=== PATIENT | female | born 1950 | race Caucasian/White ===

== ENCOUNTER 2022-12-18 20:33 | Outpatient (CLI) | payer OTHER, SELFPAY | END 2022-12-18 20:34 | disposition home or self-care (01) | LOC: SLEEP 20:34 | PROVIDERS: PCP Family Medicine; Visit Provider Internal Medicine | DX: G47.33 Obstructive sleep apnea (adult) (pediatric) (principal) | CPT/HCPCS: 95811 ==

== ENCOUNTER 2023-12-06 10:30 | Outpatient (RCR) | payer OTHER, SELFPAY | END 2024-03-26 10:02 | disposition home or self-care (01) | PROVIDERS: PCP Family Medicine; Visit Provider Family Medicine | DX: S82.55XD Nondisplaced fracture of medial malleolus of left tibia, subsequent encounter for closed fracture with routine healing (principal); S93.402D Sprain of unspecified ligament of left ankle, subsequent encounter; Z51.89 Encounter for other specified aftercare | CPT/HCPCS: 97110; 97140; 97162; 97530 ==

== ENCOUNTER 2024-11-11 13:45 | Outpatient (RCR) | payer OTHER, SELFPAY | END 2024-12-27 17:04 | disposition home or self-care (01) | PROVIDERS: PCP Family Medicine; Visit Provider Nurse Practitioner Family | DX: M25.552 Pain in left hip (principal); Z51.89 Encounter for other specified aftercare | CPT/HCPCS: 97110; 97112; 97161 ==

== ENCOUNTER 2025-01-02 14:14 | Observation (INO) | payer OTHER, SELFPAY ==
[2025-01-02] VITALS (12 sets, daily range): BP systolic 132–164; BP diastolic 70–131; PULSE 60–77; RESP 16–18; TEMP 36.1–36.8; O2SAT 92–100; BMI 30.2; BMI 30.7
--- OUTSIDE RECORDS SUMMARY | 2025-01-02 14:23 | XMS_ITS | Clinical Summary ---
Author Organization [facility] Address [address] [place] [id number] Care Team Providers Care Jewelry Polisher Name Role Phone No Echavarria MD Primary Care Provide r Allergies Active Allergy Reactions Criticality Noted Date Comments Amoxicillin Rash 05/13/2020 Trazodone Sedation 12/15/2022 Medications acetaminophen (TYLENOL) 500 mg capsule Take 500 mg by mouth every 6 hours if needed. Max acetaminophen dose: 4000mg in 24 hrs. Active albuterol HFA (PRO-AIR; VENTOLIN; PROVENTIL) 90 mcg/actuation inhalerIndications :SOB (shortness of breath) Inhale 1-2 Puffs by mouth every 4 hours if needed for Shortness Of Breath or Wheezing. 1 Each 3 02/22/20 24 Active medication order composerIndication s:ABDI (obstructive sleep apnea) 12/18/2022 AHI- 13; diagnosis obstructive sleep apnea MRD #1 1 unit 04/10/20 24 Active mirtazapine (REMERON) 15 mg tabletIndications: Insomnia, idiopathic Take 1 Tablet (15 mg) by mouth at bedtime. 60 Tablet 5 06/18/19 25 Active triamcinolone 0.1 % cream 09/26/19 24 Active omeprazole 20 mg Delayed-Release capsuleIndications :Chronic GERD Take 1 Capsule (20 mg) by mouth once daily if needed for GI Upset. 100 Capsule 3 08/16/19 25 Active metoprolol succinate 50 mg sustained-release tabletIndications: Primary hypertension Take 1 Tablet (50 mg) by mouth once daily. 100 Tablet 3 08/16/19 25 Active rosuvastatin 10 mg tabletIndications: Hyperlipidemia, unspecified hyperlipidemia type Take 1 Tablet (10 mg) by mouth at bedtime. 100 Tablet 3 08/16/19 25 Active amLODIPine 2.5 mg tabletIndications: HTN (hypertension) Take 1 Tablet (2.5 mg) by mouth once daily. 100 Tablet 3 08/16/19 25 Active gabapentin 100 mg capsuleIndications :Chronic pain of left ankle TAKE 2 CAPSULES ( 200mg) BY MOUTH AT NIGHT 200 Capsule 3 08/16/19 25 Active Active Problems Problem Noted Date Diagnosed Date Gastroesophageal reflux disease without esophagi tis 12/20/2022 Hyperlipidemia, unspecified 07/30/2021 HTN (hypertension) 07/30/2021 Osteoporosis 07/30/2021 Vasovagal syncope 07/30/2021 Encounters Date Type Department Care Team Description 11/08/2024 1:00 PM CDT Ancillary Procedure [facility] [address] [place] [address] 11/08/2024 Travel 11/06/2024 Travel 10/18/2024 Telephone [facility] [address] [place] [address] Phoebe Parisi NP Form (PHYSICIAN ORDER) 10/16/2024 10:25 AM CDT Ancillary Procedure [facility] [address] [place] [address] 10/16/2024 10:00 AM CDT Office Visit [facility] [address] [place] [address] Phoebe Parisi NP Hip Pain/problem (Left x 1 week) 10/16/2024 Travel 10/16/2024 Nurse Triage [facility] [address] [place] [address] No Echavarria MD Hip Pain/problem from Last 3 Months Immunizations Immunization Administration Dates Next Due COVID-19 VACCINE (MODERNA 25MCG/0.25ML) 6MO-11YO PFS 02/01/2024 COVID-19 VACCINE SPIKEVAX (M ODERNA 50MCG/0.5ML) 12YO+ PFS 03/02/2023 COVID-19 vaccine (Moderna 100mcg/0.5mL) PF, MDV 11/11/2021,02/23/2021,02/03/2021,2020,06/26/2020 COVID-19 vaccine (Moderna 50mcg/0.5mL) 12YO+ BIVALENT PF, MDV 12/23/2022,02/17/2022 Hepatitis A (Adult) 12/17/2002 Influenza, High-dose Inactivated 01/30/2018 Influenza, High-dose Quadriv alent Inactivated 02/08/2022,02/03/2021 Influenza, IIV3 (Age 6-35 mos) 01/10/2020 Influenza, IIV3 (Age >=3 years) 04/27/20 06,04/14/2005,05/04/2004,2002 Influenza, Inactivated AIIV4 (Age 65+ Years) Preserv Free 02/15/2023 Influenza, Inactivated IIV3 (Age 65+ Years) Preserv Free 02/01/2024,01/15/2019 Pneumococcal Conj 20-valent (Prevnar 20) 08/18/2022 Tdap 09/18/2023,09/20/2005 Typhoid (injectable) 09/20/2005,11/26/2002 Zoster (Shingrix-RZV, recombinant) 01/15/2019, Family History Medical History Relation Name Comments Heart attack Brother Heart attack Father Unknown Mother Stroke Sister Cancer-breast No Family History Cancer-ovarian No Family History Relation Name Status Comments Brother (Age 61) Father (Age 58) Mother Sister (Age 48) Social History Tobacco Use Types Packs/Day Years Used Date Smoking Tobacco: Never Passive Smoke Exposure: Never Smokeless Tobacco: Never Tobacco Cessation:Counseling Given: Not Answered Alcohol Use Standard Drinks/Week Comments Yes 0 (1 standard drink = 0.6 oz pur e alcohol) OCASSIONALLY PHQ-2 Answer Date Recorded PHQ-2 TOTAL SCORE 2 08/15/2024 Social Connections Answer Date Recorded Do you often feel lonely or isolated from those around you? 0 02/22/2024 Financial Resource Strain Answer Date R ecorded Difficulty of Paying Living Expenses 3 02/22/2024 Difficulty of Paying Living Expenses Not on file 02/22/2024 Food Insecurity Answer Date Recorded Do you worry your food will run out before you are able to buy more? 1 02/22/2024 Transportation Needs Answer Date Record ed Does lack of transportation keep you from medica l appointments? 1 02/22/2024 Does lack of transportation keep you from work, meetings or getting things that you need? 1 02/22/2024 Housing Stability Answer Date Recorded What is your housing situation today? 1 02/22/2024 Utilities Answer Date Recorded Do you have trouble paying f or utilities (for example, heat, electricity, water, phone)? 1 02/22/2024 Comments No Sex and Gender Information Value Date Recorded Sex Assigned at Not on file Legal Sex Female 8:35 PM CDT Gender Identity Not on file Sexual Orientation Not on file Obstetrics History Last Filed Vital Signs Vital Sign Reading Time Taken Comments Blood Pressure 132/70 10/16/2024 10:18 AM CDT Pulse 60 10/16/2024 10:05 AM CDT Temperature 36.2 C (97.2 F) 09/24/2024 10:08 AM CDT Respiratory Rate 16 12/20/2022 11:30 AM CDT Oxygen Saturation 96% 10/16/2024 10:05 AM CDT Inhaled Oxygen Concentration - - Weight 75.3 kg (166 lb) 10/16/2024 10:05 AM CDT Height 158.8 cm (5' 2.5) 08/15/2024 1:16 PM CDT Body Mass Index 29.88 08/15/2024 1:16 PM CDT Plan of Treatment Upcoming Encounters Date Type Department Care Team (Late st Contact Info) Description 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 Office Visit [facility] [address] [place] [address] Augusto Dey MD [address] [place] [address] Health Maintenance Due Date Last Done Comments Influenza Vaccine (#1) 2024 4, 02/15/2023, 01/10/2020, Additional history exists COVID-19 vaccine series ( season) 2025 08/23/2024, 02/01/2024, 02/01/2024, Additional history exists BMI (ht and wt on same day) for age 18+ 08/15/2025 08/15/2024, 04/10/2024, 02/06/2024, Additional history exists Medicare Wellness for age 65+ 08/16/2025 08/15/2024, 08/11/2023, 08/04/2022, Additional history exists Depression screening for age 12+ 08/19/2025 08/19/2024, 08/19/2024, 08/16/2024, Additional history exists Mammogram for age 45-75 11/08/2025 11/09/19, 10/23/2023, 10/12/2022, Additional history exists RSV vaccine for adults or (1 - 1-dose 75+ series) 2026 Lipids for age 45-75 08/19/2029 08/19/2024, 08/11/2023, 08/09/2022, Additional history exists Colonoscopy through age 75 10/21/2031 10/20/2021, Tetanus booster 09/17/2033 09/18/2023, 09/20/2005 Zoster (shingles) series for age 50+ Completed 01/15/2019, 11/14/2018 Hepatitis C screening for age 18-79 Completed 07/30/2021 Pneumococcal series for age 50+ Completed 08/18/2022 DEXA/DXA scan for age 65+ Completed 08/15/2024, 03/2023 Hepatitis B series for 19+ Aged Out N o longer eligible based on patient's age to complete this topic Goals Goal Patient Goal Type Associated Problems Recent Progress Patient-Stated? 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 Procedures Procedure Name Priority Date/Time Associated Diagnosis Comments XR MAMMO LOU BILAT SCREEN Routine 11/08/2024 1:17 PM CDT Visit for screening mammogram XR HIP 1 VIEW W PELVIS LEFT Routine 10/16/2024 10:33 AM CDT Acute hip pain, left LIPID PANEL W REFLEX MEASURED LDL Routine 08/19/2024 11:54 AM CDT Hyperlipidemia, unspecified hyperlipidemia type XR DXA BONE DENSITY 2 SITES AXIAL Routine 08/15/2024 2:50 PM CDT Osteoporosis, unspecified osteoporosis type, unspecified pathological fracture presence COLONOSCOPY 10/20/2021 7:39 AM CDT ANTI HCV Routine 07/30/2021 11:31 AM CDT Encounter for hepatitis C screening test for low risk patient from Last 3 Months or Most Recently Relevant to Health Maintenance Results * XR MAMMO LOU BILAT SCREEN (11/08/2024 1:17 PM CDT) Anatomical Region Laterality Modality BREASTS, Breast Left, Breast Right Bilateral Mammography Impressions 11/08/2024 3:23 PM CDT There is no radiographic evidence for malignancy. Recommend annual mammograms. MAMMOGRAM ASSESSMENT: ACR 1 Negative PATIENTS: You will also receive a letter with your examination results in an easy to read format. If you have questions about your results, please contact your referring provider. Narrative 11/08/2024 3:23 PM CDT For Patients: As a result of the Cures Act, medical imaging exams and procedure reports are released immediately into your electronic medical record. You may view this report before your referring provider. If you have questions, please contact your health care provider. XR MAMMO LOU BILAT SCREEN [[id number]] CLINICAL HISTORY: This is an asymptomatic 74 y.o. patient. INDICATION FOR EXAM: Mammogram Screening. TECHNIQUE: CC and MLO views were obtained. This study was evaluated with the assistance of Computer-Aided Detection. Breast Tomosynthesis was used in interpretation. COMPARISON FILM: Yes 10/23/23 [facility] 10/12/22 [facility] FINDINGS: There are scattered areas of fibroglandular density. There are no dominant masses, suspicious micro calcifications or areas of architectural distortion. us No Echavarria MD MAMMO Final Result * XR HIP 1 VIEW W PELVIS LEFT (10/16/2024 10:33 AM CDT) Anatomical Region Laterality Modality HIPS, HIPL, Pelvis Computed Radi ography 10/16/2024 3:13 PM CDT Narrative 10/16/2024 3:13 PM CDT For Patients: As a result of the Cures Act, medical imaging exams and procedure reports are released immediately into your electronic medical record. You may view this report before your referring provider. If you have questions, please contact your health care provider. Indication: Hip pain Technique: Pelvis and left hip 2 views Comparison: None Findings: Spurring at the right lateral acetabulum. No femoral neck fracture. Spurring at the iliac crests. Degenerative changes lower lumbar spine. Impression: No fracture. Dictated by Iain Infante MD @ 10/16/2024 3:13:37 PM (Electronically Signed) Procedure Note Iain Infante MD - 10/16/2024 For Patients: As a result of the Cures Act, medical imagingexams and procedure reports are released immediately into your electronicmedical record. You may view this report before your referring provider.If you have questions, please contact your health care provider. Indication: Hip pain Technique: Pelvis and left hip 2 views Comparison: None Findings: Spurring at the right lateral acetabulum. No femoral neck fracture.Spurring at the iliac crests. Degenerative changes lower lumbar spine. Impression: No fracture. Dictated by Iain Infante MD @ 10/16/2024 3:13:37 PM (Electronically Signed) us Phoebe Parisi [facility] Final Res ult * (ABNORMAL) LIPID PANEL W REFLEX MEASURED LDL (08/19/2024 11:54 AM CDT) CHOLESTEROL, TOTAL 130 <200 mg/dL [facility] HDL CHOLESTEROL 46(L) > OR = 50 mg/dL [facility] TRIGLYCERIDES 127 <150 mg/dL [facility] LDL-CHOLESTEROL 63 mg/dL (calc) [facility] Comment: Reference range: <100 Desirable range <100 mg/dL for primary prevention; <70 mg/dL for patients with CHD or diabetic patients with > or = 2 CHD risk factors. LDL-C is now calculated using the Agapito calculation, which is a validated novel method providing better accuracy than the Friedewald equation in the estimation of LDL-C. Abimael FRANCO et al. SWATI. 2013;310(19): 7405-3943 (http://education.LookTracker/faq/NDP460) CHOL/HDLC RATIO 2.8 <5.0 (calc) [facility] NON HDL CHOLESTEROL 84 <130 mg/dL (calc) [facility] Comment: For patients with diabetes plus 1 major ASCVD risk factor, treating to a non-HDL-C goal of <100 mg/dL (LDL-C of <70 mg/dL) is considered a therapeutic option. Blood BLOOD SPECIMEN / Unknown 08/19/2024 11:54 AM CDT 08/19/2024 11:54 AM CDT No Echavarria MD CHEMISTRY Final Result [facility] [address] [place] [address], [facility] [address] * (ABNORMAL) XR DXA BONE DENSITY 2 SITES AXIAL (08/15/2024 2:50 PM CDT) Anatomical Region Laterality Modality Spine, HIPS, HIPL, HIPR Other Impressions 08/21/2024 3:27 PM CDT Osteopenia. Due to the stability of the bone density, continue present medication if indicated. RECOMMENDATIONS: The National Osteoporosis Foundation recommends pharmacologic treatment for patients with T-scores of -2.5 or less, patients with prior history of fragility fractures, or patients with 10-year probability of greater than 3% at hips or greater than 20% of suffering major osteoporotic fractures. Recommend continued optimization of calcium and vitamin D intake through dietary means and/or supplementation and regular exercise. Continue current Zoledronic Acid (Reclast, Zometa) medication treatment. Recheck bone density in 2 years. Sis Becker PA-C [facility] 08/21/2024 Narrative 08/21/2024 3:27 PM CDT For Patients: Results are automatically released to your [facility] ([employer]) account once available, in compliance with federal regulations. This means that you may see your results before your provider has had a chance to review them. Please allow 2-3 business days for your provider to comment on the results. XR DXA Bone Mineral Density (BMD) EXAM LOCATION: [facility] [address] [facility] [address] PATIENT NAME: Tg Azul DATE OF : 1950 EXAM DATE: 08/15/2024 REQUESTING PROVIDER: No Echavarria MD GENDER AT : female HEIGHT: 5' 2.5 (08/15/2024) WEIGHT: 165 lb (08/15/2024) MENOPAUSAL STATUS: Postmenopausal RACE/ETHNICITY: White RISK FACTORS: History of Fragility Fracture (at a major site) and White Race CURRENT MEDICATION FOR BONE LOSS: Zoledronic Acid (Reclast, Zometa) INDICATION: Follow-up of existing osteoporosis COMPARISON DATE(S): 2022 DXA scans are compared to prior studies for a patient only when the two (or more) studies were performed on the same scanner. It is not possible to compare data generated on one scanner to data from another because there are not standards in DXA equipment. This applies even if the two scanners are made by the same knife setter assembler. PROCEDURE: Dual-energy x-ray absorptiometry performed with routine technique. Reporting is completed in the form of a T-score. The T-score represents the standard deviation from peak bone mass based on young healthy adult. A Z-score is used for diagnosis in premenopausal women, and for men under the age of 50. FINDINGS: RESULT LUMBAR SPINE L1 - L4 BMD: 1.034 g/cm2 T-Score: - 1.3 Z-Score: - 0.1 Change from prior in 2022: Decrease 2.1%. RESULTS FEMUR Left femoral neck BMD: 0.711 g/cm2 T-Score: - 2.3 Z-Score: - 0.7 Change from prior in 2022: Increase 2.0%. Right femoral neck BMD: 0.723 g/cm2 T-Score: - 2.3 Z-Score: - 0.6 Change from prior in 2022: Decrease 0.3%. Right hip BMD: 0.822 g/cm2 T-Score: - 1.5 Z-Score: - 0.1 Change from prior in 2022: Increase 0.6%. WHO criteria: Normal: T-score at or above -1 SD Osteopenia: T-score between -1.1 and -2.4 SD Osteoporosis: T-score at or below -2.5 SD us No Echavarria MD DEXA Final Result * COLONOSCOPY (10/20/2021 7:39 AM CDT) 10/20/2021 7:39 AM CDT Narrative Transcriptions Abimael Shi MD - 10/20/2021 8:43 AM CDT Patient Name: Tg Azul Procedure Date: 10/20/2021 Gender: Female Date of : 1950 Admit Type: Outpatient Procedure: Colonoscopy Proceduralist: Abimael Shi MD Indications/Pre-Op Diagnosis: Screening for colorectal malignant neoplasm, Last colonoscopy: May 2011 Medications: Fentanyl 200 micrograms IV, Midazolam 2 mgIV, The level of sedation administered wasmoderate Procedure Description: The patient had risks, benefits and alternatives explained to andgave informed consent. The patient had a stable cardiopulmonary status and judged an adequate candidate for conscious sedation. The Colonoscope was passed through the anus and advanced to thececum, identified by appendiceal orifice and ileocecal valve. Thecolonoscopy was performed without difficulty. The patient tolerated the procedure well. The quality of the bowel preparation was good. The ileocecal valve, appendiceal orifice, and rectum were photographed. Complications: No immediate complications. Estimated Blood Loss & Specimen: Estimated blood loss: none. Specimen collected - None Findings: The perianal and digital rectal examinations were normal. The entire examined colon appeared normal on direct and retroflexion views. Impressions/Post-Op Diagnosis: - The entire examined colon is normal on direct and retroflexionviews. - No specimens collected. Recommendation: - Patient has a contact number available for emergencies. The signsand symptoms of potential delayed complications were discussed with the patient. Return to normal activities tomorrow. Written discharge instructions were provided to the patient. - Resume previous diet. - Continue present medications. - No repeat colonoscopy due to current age (66 years or older) andthe absence of colonic polyps. Moderate Sedation: Moderate (conscious) sedation was administered by the endoscopy nurse and supervised by the endoscopist. The following parameters were monitored: oxygen saturation, heart rate, respiratory rate, blood pressure, adequacy of pulmonary ventilation and reponse to care. Please refer to the patient's medical record flowsheets and nursing notes for moderate sedation details. Total physician intraservice time was 30 minutes. Abimael Shi MD 10/20/2021 8:43:09 AM This report has been signed electronically. Note Initiated On: 10/20/2021 7:39 AM Procedure Code(s): --- Professional --- 24120, Colonoscopy, flexible; diagnostic, including collection of specimen(s) bybrushing or washing, when performed (separateprocedure) Diagnosis Code(s): --- Professional --- Z12.11, Encounter for screening formalignant neoplasm of colon CPT copyright 2020 [employer]. All rights reserved. The codes documented in this report are preliminary and upon crane operator reviewmay be revised to meet current compliance requirements. Scope In: 8:09:27 AM Scope Withdrawal Time 0 hours 9 minutes 53 seconds Scope Out: 8:35:23 AM us Abimael Shi MD PROCEDURE ORD Final Res ult * ANTI HCV (07/30/2021 11:31 AM CDT) HEPATITIS C ANTIBODY Non-React gustabo Non-React gustabo 07/30/2021 11:27 PM CDT [facility] Comment:Antibodies to HCV no t detected; does not exclude the possibility of exposure to HCV. Blood BLOOD SPECIMEN / Unknown Venipuncture / Unknown 07/30/2021 11:31 AM CDT 07/30/2021 11:31 AM CDT us No Echavarria MD SEND OUTS Final Result [facility] [address] [place] [address], [place] from Last 3 Months or Most Recently Relevant to Health Maintenance Insurance [employer] CHO[employer] PPO [place] MEDICARE PART A HB ONLY Advance Directives * Full Code (Latest Code Status on File) Date Activated Date Inactivated Comments 12/20/2022 9:15 AM 12/20/2022 1:52 PM Question Answer Comments Code Status Discussion: Discussed Care Teams Jewelry Polisher Relationship Specialty Start Date End Date No Echavarria MD [address] [place] [address] PCP - General Family Practice 07/30/21
--- NOTE | 2025-01-02 14:54 | CRLHL7_ITS ---
For Patients: As a result of the Century Cures Act, medical imaging exams and procedure reports are released immediately into your electronic medical record. You may view this report before your referring provider. If you have questions, please contact your health care provider. INDICATION: RIGHT UPPER EXTREMITY WEAKNESS TECHNIQUE: CT of the head was performed without IV contrast. COMPARISON: None. FINDINGS: Parenchyma: No acute hemorrhage, infarction, or mass. Mild scattered periventricular white matter hypoattenuation is nonspecific and is favored to represent chronic small vessel ischemic disease. Ventricles and extra-axial spaces: Appropriate for age. Visualized paranasal sinuses: Clear. Mastoid air cells: Clear. Bones: No focal abnormality. Additional comment: None. IMPRESSION: No acute hemorrhage or large territorial infarct is seen. Findings discussed with Dr. Ramírez at 3:34 p.m. on 01/02/2025. Please note that all CT scans at this facility use dose modulation, iterative reconstruction, and/or weight-based dosing when appropriate to reduce radiation dose to as low as reasonably achievable. Dictated by Barry Spencer MD @ 01/02/2025 3:36:55 PM (Electronically Signed)
--- NOTE | 2025-01-02 14:54 | CT_ITS ---
Patient: BERNADINE NORRIS Facility:?[facility] Patient ID:?[id number] Site Patient ID:?[id number]. Site :?1950 Study:?CT-Neck Angio Angio STROKE CODE; WITH 95 CC ISOVUE 3-01/02/2025 3:28:20 PM Ordering Physician:?Francisco Jimenez Final Report: DATE: 01/02/2025 CLINICAL HISTORY: Patient with focal neurological deficits. TECHNIQUE: Standard helical CT image acquisition through the head and neck was performed after intravenous contrast bolus enhancement. 2D and 3D MIP images for post- processing were performed and interpreted on an independent workstation and 3D images were permanently archived. COMPARISON: CT same day. FINDINGS: The origins of the great vessels from the aortic arch are patent. The origin of the right vertebral artery is patent. The origin of the left vertebral artery is patent. The common carotid arteries are patent There is no stenosis at the origin of the right internal carotid artery. There is no stenosis at the origin of the left internal carotid artery. The rest of the cervical segments of the internal carotid arteries are patent up to their intracranial segments. The intracranial segments of the internal carotid arteries are patent. The vertebral arteries are codominant. The cervical segments of the vertebral arteries are patent. The intracranial segments of the vertebral arteries are patent. The middle cerebral arteries are normal without aneurysm or proximal occlusion identified. The anterior cerebral arteries are normal without aneurysm or proximal occlusion identified. The anterior communicating artery is well visualized and appears normal. The basilar artery is normal without aneurysm or occlusion. The posterior cerebral arteries are normal without aneurysm or proximal occlusion. There is normal opacification of major intracranial venous structures. The visualized lung apices are unremarkable The thyroid gland is unremarkable. The soft tissues of the neck demonstrates a 5mm lesion in the left parotid gland, likely a lymph node. There are degenerative changes in the cervical spine. IMPRESSION: Patent cervical and proximal intracranial vasculature. Please note that all CT scans at this facility use dose modulation, iterative reconstruction, and/or weight-based dosing when appropriate to reduce radiation dose to as low as reasonably achievable. Dictated by Cheng Rudd MD @ 01/02/2025 10:16:10 PM Signed by:?Cheng Rudd MD @01/02/2025 10:16:10 PM (Electronic Signature)
--- NOTE | 2025-01-02 14:55 | ED.GENADULT ---
HPI - General Adult General Date Seen: 01/02/25 Chief complaint: Extremity Pain/Injury, Upper Stated complaint: R hand went numb Time Seen by Provider: 01/02/25 14:49 Source: patient and RN notes reviewed Mode of arrival: ambulatory Limitations: no limitations History of Present Illness HPI narrative: Tg is a very pleasant 74-year-old female with a history of hyperlipidemia, hypertension, treated who comes to the emergency room for evaluation regarding weakness in her right arm and hand. Pain states that this came on at approximately 1400 hours. Initially she could not move her fingers at all. It then improved but worsened once again. She then decided to come to the ER. We are approaching 1500 hours and she notes that while she can move her fingers again she is right-hand dominant and feels weak and not as dextrose in that hand. She notes that the numbness and tingling extended onto her dorsal forearm. She notes her shoulder is sore but can move that without difficulty. She denies a headache but states that 15 minutes prior to the onset of the symptoms she had been getting something out of the oven and felt the onset of vertigo. In the past she has had syncopal episodes when she is bending over. She did not pass out today and at this time has no vertigo and no headache. She denies chest pain and shortness of breath. She denies lower extremity symptoms. Stroke code called by physician at 1451-alerted nursing staff. Overhead page shortly thereafter. Orders placed at 1454. Discussed with Neurology 1503 CT delayed by IV placement and drawing of labs. Related Data Home Medications ?Medication ?Instructions ?Recorded ?Confirmed amlodipine 2.5 mg tablet PO 01/02/25 gabapentin 100 mg capsule PO 01/02/25 metoprolol succinate 50 mg mg PO 01/02/25 tablet,extended release 24 hr mirtazapine 15 mg tablet 15 mg PO QPM 01/02/25 01/02/25 naproxen 500 mg tablet 500 mg PO BID 01/02/25 01/02/25 omeprazole 20 mg capsule,delayed 20 mg PO DAILY 01/02/25 01/02/25 release rosuvastatin 10 mg tablet PO 01/02/25 Allergies Allergy/AdvReac Type Severity Reaction Status Date / Time amoxicillin Allergy Mild Verified 01/02/25 14:37 Review of Systems Status of ROS: Reports: 10 or more systems reviewed and unremarkable except as noted in History and below Const: Denies: fever, chills or fatigue Eyes: Denies: change in vision or blurry vision ENMT: Reports: vertigo (Preceding event by 15 minutes); Denies: throat pain, neck pain, throat swelling or nasal congestion Cardio: Denies: chest pain, palpitations, swelling of feet/ankles, lightheadedness or shortness of breath with exertion Resp: Denies: shortness of breath or cough GI: Denies: abdominal pain, nausea or vomiting Musculo: Reports: muscle weakness and other (Numbness tingling of right hand and forearm); Denies: back pain, neck pain, extremity pain, extremity swelling or joint pain Integ/Breast: Denies: rash Neuro: Reports: numbness in extremities, weakness in extremities, lack of coordination and vertigo (Preceding event by 15 minutes); Denies: headache or dizziness Endo: Denies: fatigue Allergy/Immuno: Denies: throat swelling PFSH PFS Social History Smoking Status: Never smoker How often do you have a drink containing alcohol: monthly or less AUDIT-C Alcohol total score: 1 Non-prescribed substance use: denies use Exam Narrative: Exam Narrative: Patient is alert and oriented. Stroke scale 1 EOM is full face symmetrical pupils equal round and reactive. Smile intact eyebrow raise intact. Shoulder strength intact. Heart with regular rate and rhythm and lungs are clear. Her right arm strength is slightly decreased compared to left. Her dexterity is definitely off with finger to nose intact but some to each individual finger slowed on the right hand and requiring significant concentration. Able to ambulate and move legs without difficulty. Const: Vital Signs, click to edit/add: Vital Signs - 24 hr 01/02/25 14:30 01/02/25 15:26 01/02/25 15:31 Temperature 96.9 F L Pulse Rate 77 74 Pulse Rate [Left P ulse Oximeter] 64 Respiratory Rate 18 18 18 Blood Pressure 146/131 H 151/92 H Blood Pressure [Le ft Upper Arm] 143/82 H Pulse Oximetry 95 100 97 Oxygen Delivery Me thod Room Air 01/02/25 15:47 01/02/25 16:04 Temperature Pulse Rate 68 67 Pulse Rate [Left P ulse Oximeter] Respiratory Rate 18 18 Blood Pressure 151/77 H Blood Pressure [Le ft Upper Arm] Pulse Oximetry 95 92 Oxygen Delivery Me thod Documenting provider has reviewed patient's vital signs: yes Course Course ED Course: Differential diagnosis includes but is not limited to acute stroke, migraine, carpal tunnel. At this time my concern is regarding an acute stroke. Symptom onset 1400 hours. Have called stroke code and alerted nurses to this. Will get CT of head followed by CTA neck and head. Plan on labs to include CBC, comprehensive, PTT and INR. Will place patient on monitor and storage bin tender and obtain EKG. Reevaluation(s) Reevaluation #1: Patient noted to have improved dexterity of the right hand. EKG at reassuring. Consultations Consultation #1: I spoke with Dr. Ramírez prior to patient CT. I then spoke to him again after he was able to interview patient. At this time suggest overnight admission, cardiac monitoring and aspirin. I did state that her dexterity in her right hand was definitely compromise her right hand being her dominant arm. He once again interviewed her and we do note improvement in the dexterity. Therefore, we will not use a lytic at this time but plan on MRI tomorrow morning. Vital Signs Vital signs: Initial Vital Signs Temperature 96.9 F L 01/02/25 14:30 Temperature Source Temporal Artery Scan 01/02/25 14:30 Pulse Rate 64 01/02/25 14:30 Pulse Rhythm Regular 01/02/25 14:30 Pulse Strength 3+ Normal 01/02/25 14:30 Respiratory Rate 18 01/02/25 14:30 Blood Pressure 143/82 H 01/02/25 14:30 Blood Pressure Mean 102 01/02/25 14:30 Blood Pressure Position Sitting 01/02/25 14:30 Pulse Oximetry 95 01/02/25 14:30 Oxygen Delivery Method Room Air 01/02/25 14:30 Vital Signs Temperature 96.9 F L 01/02/25 14:30 Pulse Rate 64 01/02/25 14:30 Respiratory Rate 18 01/02/25 14:30 Blood Pressure 143/82 H 01/02/25 14:30 Pulse Oximetry 95 01/02/25 14:30 Oxygen Delivery Method Room Air 01/02/25 14:30 Temperature 96.9 F L 01/02/25 14:30 Pulse Rate 67 01/02/25 16:04 Respiratory Rate 18 01/02/25 16:04 Blood Pressure 151/77 H 01/02/25 15:47 Pulse Oximetry 92 01/02/25 16:04 Oxygen Delivery Method Room Air 01/02/25 14:30 Medications Administered Medications: Discontinued Medications Generic Name Dose Route Start Last Admin Trade Name Nnamdi PRN Reason Stop Dose Admin Aspirin 324 mg 01/02/25 15:47 01/02/25 16:10 Aspirin 81 Mg Tab.Chew PO 01/02/25 15:48 324 mg ONCE ONE Administration Medical Decision Making MDM Narrative Medical decision making narrative: 1. TIA-patient noted to have localized neurological deficit right wrist and hand and fingers. Much improved at this time. Patient is given aspirin 325 mg p.o., MRI is scheduled for tomorrow morning and patient continues to be on monitor and storage bin tender. Will have her transferred to the medical-surgical floor under the care of the hospitalist. 2. Sleep apnea- will bring her CPAP into the hospital. 3. Hypertension-permissive hypertension encourage at this time. I have informed the hospitalists.. Current blood pressure 143/82. 4. Disposition-transfer to the floor under the care of Dr. Mcnair. Medical Records Medical records reviewed: Yes I reviewed the patient's medical records Lab Data Lab results reviewed: Yes I reviewed the patient's lab results Labs: Lab Results 01/02/25 01/02/25 01/02/25 Range/Units 14:55 15:18 16:10 WBC 7.38 (4.50-11.00) K/uL RBC 4.52 (4.00-5.20) m/uL Hgb 14.0 (12.0-16.0) gm/dL Hct 42.1 (33.0-51.0) % MCV 93 (80-100) fL MCH 31 (26-34) pg MCHC 33 (32-36) gm/dL RDW Coeff of [place] 11.8 (11.5-15.5) % Plt Count 179 (140-440) K/uL Neut % (Auto) 58.0 (42.0-72.0) % Lymph % (Auto) 30.2 (20-44) % [place] % (Auto) 8.5 (0.0-11.0) % Eos % (Auto) 1.9 (0.0-7.0) % Baso % (Auto) 0.7 (0.0-3.0) % Neut # (Auto) 4.28 (1.7-7.0) K/uL Lymph # (Auto) 2.23 (0.90-2.90) K/uL [place] # (Auto) 0.60 (0.00-0.90) K/UL Eos # (Auto) 0.14 (0.00-0.50) K/uL Baso # (Auto) 0.05 (0.00-0.30) K/uL Abs Immat Gran (auto) 0.05 (0.00-0.30) K/uL Imm/Tot Granulo (auto) 0.7 % INR 0.94 (0.91-1.10) APTT 28 (23-33) Seconds Sodium 136 (135-149) mmol/L Potassium 3.9 (3.6-5.1) mmol/L Chloride 105 (96-114) mmol/L Carbon Dioxide 25 (20-32) mmol/L Anion Gap 6 L (7-15) mEq/L BUN 17 (7-30) mg/dL Creatinine 0.6 (0.5-1.5) mg/dL Estimated Creat Clear 39.63 Estimated GFR 95 ml/min Glucose 125 H (60-115) mg/dL Calcium 9.3 (8.4-10.6) mg/dL Total Bilirubin 0.4 (0.1-1.5) mg/dL AST 34 (12-35) U/L ALT 34 (4-35) U/L Alkaline Phosphatase 77 (40-150) U/L Total Protein 6.9 (6.0-8.3) g/dL Albumin 4.3 (3.3-5.0) g/dL Urine Color Yellow (Yellow) Urine Appearance Clear (Clear) Urine pH 7.0 (5.0-8.5) Ur Specific [place] 1.010 (1.000-1.030) Urine Protein Negative (Negative) Urine Glucose (UA) Negative (Negative) Urine Ketones Negative (Negative) Urine Blood Negative (Negative) Urine Nitrite Negative (Negative) Urine Bilirubin Negative (Negative) Urine Urobilinogen 0.2 (0.2-1.0) Ur Leukocyte Esterase 1+ A (Negative) Imaging Data CT scan - head: Attestation: I have reviewed the pertinent imaging results. My impression: I do not note any acute bleed. Radiologist's impression: Parenchyma: No acute hemorrhage, infarction, or mass. Mild scattered periventricular white matter hypoattenuation is nonspecific and is favored to represent chronic small vessel ischemic disease. Ventricles and extra-axial spaces: Appropriate for age. Visualized paranasal sinuses: Clear. Mastoid air cells: Clear. Bones: No focal abnormality. Additional comment: None. IMPRESSION: No acute hemorrhage or large territorial infarct is seen. CTA head and neck: Attestation: I have reviewed the pertinent imaging results. Radiologist's impression: Anterior circulation: No flow-limiting stenosis or aneurysm. Posterior circulation: No flow-limiting stenosis or aneurysm. Dural venous sinuses: Patent. Additional comment: None. EXTRACRANIAL ANGIOGRAM: Proximal great vessels: No flow-limiting stenosis or dissection. Enlarged main pulmonary artery measuring 3.3 centimeter (07/8040), which may be seen in the setting of pulmonary hypertension. Cervical vessels: No flow-limiting stenosis or dissection. Additional comment: None. NECK: Soft tissues: Normal. Bones: Moderate degenerative changes of the visualized spine. Lung apices: Clear. Additional comment: Left hilar calcified lymph nodes. Impression: No flow-limiting stenosis, occlusion or aneurysm in the intracranial and extracranial circulations. ECG Data Attestation: I personally reviewed and interpreted this ECG as follows: Interpretation: EKG by my read shows sinus rhythm at a rate of 71. No acute ST or T-wave changes. QT and VA intervals within normal limits. Critical Care Time Critical Care Time Critical Care Time: Yes Attestation: The patient required my highest level preparedness to intervene emergently and I personally spent this critical care time directly and personally managing the patient. This critical care time included: Obtaining a history; Examining the patient; Pulse oximetry; Ordering and reviewing of studies; Arranging urgent treatment with development of a management plan; Evaluation of patients response to treatment; Frequent reassessment discussions with other providers. This critical care time was performed to assess and manage the high probability of imminent life-threatening deterioration that could result in multiorgan failure. It was exclusive of separate billable procedures and treating other patients and teaching time. Total Critical Care Time in Minutes: 45 Discharge Plan Discharge Clinical Impression: Brain TIA Patient Disposition: Admitted As Observation Condition: Improved
[2025-01-02 15:35] LABS: Hematocrit 42.1 % (33.0-51.0); Hemoglobin* 14.0 gm/dL (12.0-16.0); Immature Granulocytes Abs Auto 0.05 K/uL (0.00-0.30); Immature Granulocytes Pct Auto 0.7 %; Lymphocytes Absolute Auto 2.23 K/uL (0.90-2.90); Mean Corpuscular HGB Conc 33 gm/dL (32-36); Mean Corpuscular Hemoglobin 31 pg (26-34); Mean Corpuscular Volume 93 fL (80-100); RDW Coefficient of Variation % 11.8 % (11.5-15.5); Red Blood Count 4.52 m/uL (4.00-5.20); White Blood Count* 7.38 K/uL (4.50-11.00)
[2025-01-02 15:43] LABS: Albumin* 4.3 g/dL (3.3-5.0); Chloride* 105 mmol/L (96-114); Potassium* 3.9 mmol/L (3.6-5.1); Slide Review Reflex No; Sodium* 136 mmol/L (135-149)
[2025-01-02 15:45] LABS: Blood Urea Nitrogen* 17 mg/dL (7-30); Creatinine* 0.6 mg/dL (0.5-1.5); Est. Creatinine Clearance* 39.63; Estimated Glomerular Filt Rate 95 ml/min
[2025-01-02 15:46] LABS: Alanine Aminotransferase* 34 U/L (4-35); Alkaline Phosphatase* 77 U/L (40-150); Anion Gap 6 mEq/L (7-15); Aspartate Amino Transferase* 34 U/L (12-35); Bilirubin Total* 0.4 mg/dL (0.1-1.5); Calcium* 9.3 mg/dL (8.4-10.6); Carbon Dioxide* 25 mmol/L (20-32); Glucose* 125 mg/dL (60-115); Total Protein* 6.9 g/dL (6.0-8.3)
[2025-01-02 15:49] LABS: INR 0.94 (0.91-1.10); Prothrombin Time 13.3 Seconds
[2025-01-02] MEDS: ASPIRIN 81 MG TAB.CHEW 324 MG PO (16:10)
[2025-01-02 16:20] LABS: Appearance Urine Clear (Clear)
--- NOTE | 2025-01-02 19:08 | PM.IMHP1 ---
Assessment and Plan Assessment and plan (1) Transient ischemic attack: Problem comment: - Start aspirin 81 mg daily. - Doubled statin therapy . - Frequent neurologic exam. Stat CT head if any deterioration in the neurological status of the patient. - Permissive hypertension, treat blood pressure only if systolic BP is above 210 and diastolic blood pressure above 110. - control blood sugar, keep below 180. - Pt will need an Echo with bubble study. - Brain MRI ordered - DVT prophylaxis with SCDs, avoid chemical prophylaxis until approved by neurologist. - patient passed ST eval - P.T./OT evaluation and treatment. - Consult neonatal social worker for DC planning. Status: Acute (2) Hypertension: Problem comment: Patient is on amlodipine and metoprolol Will hold antihypertensive meds for permissive hypertension. Status: Acute (3) Hyperlipidemia: Problem comment: Patient is on rosuvastatin 10 mg, I doubled it to rosuvastatin 20 mg Patient will need monitoring and follow-up with her primary care physician to make sure that her cholesterol is suppressed Status: Acute Total Time Spent Total Time Spent: Time spent: Today I spent 55 minutes seeing the patient, discussing the patient with ER staff, reviewing Expanse and EPIC notes/diagnostics, discussing the care plan with our care time that includes social work, PT/OT, pharmacy, RT, intermediate and documenting my impressions and plan in the medical record. Hospitalist- H&P: HPI History of Present Illness Date Seen: 01/02/25 Chief complaint: R hand went numb Narrative: Tg Azul is a 74 year old female with past medical history of hypertension and hyperlipidemia who presented with right-sided upper extremity weakness while she was baking today. patient noticed that the weakness improved but then it got worse and so she headed to the ED. when I met the patient symptoms were already resolved. She states that this is the 1st time she has having such symptoms. patient denies chronic medical problems except for hypertension and hyperlipidemia. No history of strokes, TIA, arrhythmias per the patient. She denies chest pain or shortness of breath. at the ED, patient was hemodynamically stable. CT head, CTA head and neck were unremarkable. ED provider contacted a neurologist who recommended observation at the [facility]. He also recommended aspirin, permissive hypertension and a brain MRI. Medical Decision Making Medical Decision Making Has patient completed a Health Care Directive: Yes PFSH PFSH Social History What is your current living situation?: I presently have a place to live Problems where you live: no known problems Problems where you live details: NA In the past 12 months, utilities in danger of being shut off: no In past 12 months, lack of transportation kept you from medical appts, meetings, work, or getting things needed for daily living: no In the past 12 mos, have been you worried that your food would run out before you had money to buy more?: never true In the past 12 mos, the food you bought just didn't last and you didn't have money to buy more?: never true Highest level of school completed/degree received: Master's degree Smoking Status: Never smoker Second hand tobacco smoke exposure: No How often do you have a drink containing alcohol: monthly or less Alcohol type: wine AUDIT-C Alcohol total score: 1 Non-prescribed substance use: denies use Caffeine: Yes (coffee 3 cups a day) How often does anyone, including family, friends and others, physically hurt you: never How often does anyone, including family, friends and others, insult or talk down to you: never How often does anyone, including family, friends and others, threaten you with harm: never How often does anyone, including family, friends and others, scream or curse at you: never service: No Meds Home Medications and Allergies Home Medications ?Medication ?Instructions ?Recorded ?Confirmed ?Type amlodipine 2.5 mg tablet 2.5 mg PO DAILY 01/02/25 01/02/25 History gabapentin 100 mg capsule 200 mg PO HS 01/02/25 01/02/25 History metoprolol succinate 50 mg 50 mg PO HS 01/02/25 01/02/25 History tablet,extended release 24 hr mirtazapine 15 mg tablet 15 mg PO HS 01/02/25 01/02/25 History omeprazole 20 mg capsule,delayed 20 mg PO DAILY PRN 01/02/25 01/02/25 History release rosuvastatin 10 mg tablet 10 mg PO HS 01/02/25 01/02/25 History Allergies Allergy/AdvReac Type Severity Reaction Status Date / Time amoxicillin Allergy Mild Verified 01/02/25 14:37 Exam Narrative: Exam Narrative: Physical exam GENERAL: Comfortable, no acute distress. HEAD AND NECK: Atraumatic, normocephalic CARDIOVASCULAR: RRR. Normal S1, S2. No murmurs. RESPIRATORY: Clear to auscultation B/L. Good air entry B/L. No wheezes or rhonchi. NEUROLOGY: Alert, awake, oriented X 3. Normal speech. No focal weakness noticed in her upper or lower extremities. No facial asymmetry. PSYCH: Normal mood, normal affect. Const: Vital Signs, click to edit/add: Vital Signs - 24 hr 01/02/25 14:30 01/02/25 15:26 01/02/25 15:31 Temperature 96.9 F L Pulse Rate 77 74 Pulse Rate [Left P ulse Oximeter] 64 Pulse Rate [Pulse Oximeter] Respiratory Rate 18 18 18 Blood Pressure 146/131 H 151/92 H Blood Pressure [Le ft Arm] Blood Pressure [Le ft Upper Arm] 143/82 H Pulse Oximetry 95 100 [facility] 01/02/25 15:47 01/02/25 16:04 01/02/25 16:17 Temperature Pulse Rate 68 67 64 Pulse Rate [Left P ulse Oximeter] Pulse Rate [Pulse Oximeter] Respiratory Rate 18 18 18 Blood Pressure 151/77 H 146/76 H Blood Pressure [Le ft Arm] Blood Pressure [Le ft Upper Arm] Pulse Oximetry 95 92 95 [facility] 01/02/25 16:32 01/02/25 16:47 01/02/25 17:36 Temperature 98.2 F Pulse Rate 62 60 Pulse Rate [Left P ulse Oximeter] Pulse Rate [Pulse Oximeter] 63 Respiratory Rate 17 17 18 Blood Pressure 132/70 141/74 H Blood Pressure [Le ft Arm] 164/87 H Blood Pressure [Le ft Upper Arm] Pulse Oximetry 99 95 99 [facility] 01/02/25 17:36 01/02/25 18:22 Temperature Pulse Rate 64 Pulse Rate [Left P ulse Oximeter] Pulse Rate [Pulse Oximeter] Respiratory Rate Blood Pressure Blood Pressure [Le ft Arm] Blood Pressure [Le ft Upper Arm] Pulse Oximetry [facility] Hospitalist - H&P: Result Labs Labs: Short CBC 01/02/25 Range/Units 14:55 WBC 7.38 (4.50-11.00) K/uL Hgb 14.0 (12.0-16.0) gm/dL Hct 42.1 (33.0-51.0) % Plt Count 179 (140-440) K/uL BMP 01/02/25 14:55 Sodium 136 Potassium 3.9 Chloride 105 Carbon Dioxide 25 BUN 17 Creatinine 0.6 Glucose 125 H Calcium 9.3 Liver Function 01/02/25 Range/Units 14:55 Total Bilirubin 0.4 (0.1-1.5) mg/dL AST 34 (12-35) U/L ALT 34 (4-35) U/L Alkaline Phosphatase 77 (40-150) U/L Albumin 4.3 (3.3-5.0) g/dL Urine 01/02/25 Range/Units 16:10 Urine Color Yellow (Yellow) Urine Appearance Clear (Clear) Urine pH 7.0 (5.0-8.5) Ur Specific [place] 1.010 (1.000-1.030) Urine Protein Negative (Negative) Urine Glucose (UA) Negative (Negative) ECG Attestation: I personally reviewed and interpreted this ECG as follows: ECG interpretation date: 01/02/25 Interpretation: Normal sinus rhythm. QTC [address] scan - head: Radiologist's impression: INDICATION: RIGHT UPPER EXTREMITY WEAKNESS TECHNIQUE: CT of the head was performed without IV contrast. COMPARISON: None. FINDINGS: Parenchyma: No acute hemorrhage, infarction, or mass. Mild scattered periventricular white matter hypoattenuation is nonspecific and is favored to represent chronic small vessel ischemic disease. Ventricles and extra-axial spaces: Appropriate for age. Visualized paranasal sinuses: Clear. Mastoid air cells: Clear. Bones: No focal abnormality. Additional comment: None. IMPRESSION: No acute hemorrhage or large territorial infarct is seen. Findings discussed with Dr. Ramírez at 3:34 p.m. on 01/02/2025. Please note that all CT scans at this facility use dose modulation, iterative reconstruction, and/or weight-based dosing when appropriate to reduce radiation dose to as low as reasonably achievable. Dictated by Barry Spencer MD @ 01/02/2025 3:36:55 PM
[2025-01-02] MEDS: ROSUVASTATIN CALCIUM 10 MG TABLET 20 MG PO (20:43)
[2025-01-02] MEDS: MIRTAZAPINE 15 MG TABLET PO (20:43)
[2025-01-02] MEDS: SODIUM CHLORIDE 0.9 % (FLUSH) 10 ML SYRINGE 5 ML IVF (20:45)
--- NOTE | 2025-01-02 22:25 | PC.NURSE ---
Addendum entered by Rajani Segura RN 01/02/25 22:43: CIPAP in place at bedtime. brought in this evening for Pt. Pt reports hx of ABDI. Original Note: Pt arrived to the unit @ 1705. Pt AxOx4, cooperative, and pleasant with cares. Indep in room. Continent of bladder. Passing flatus.?Swallow study completed by journalists and other writers at bedside. Tolerating reg diet and fluids well. Denies pain/SOB/CP/headache. Denies numbing/tingling/decreased ROM in the R hand during admission and entirety of shift. IV SL. Call light within reach. ?
[2025-01-03 03:00] VITALS: BP 150/87; PULSE 65; RESP 16; O2SAT 97
[2025-01-03 06:00] LABS: Hematocrit 40.2 % (33.0-51.0); Hemoglobin* 13.4 gm/dL (12.0-16.0); Mean Corpuscular HGB Conc 33 gm/dL (32-36); Mean Corpuscular Hemoglobin 31 pg (26-34); Mean Corpuscular Volume 93 fL (80-100); Red Blood Count 4.32 m/uL (4.00-5.20); White Blood Count* 6.26 K/uL (4.50-11.00)
[2025-01-03 06:07] LABS: Slide Review Reflex No
[2025-01-03 06:18] LABS: Chloride* 104 mmol/L (96-114); Potassium* 4.0 mmol/L (3.6-5.1); Sodium* 135 mmol/L (135-149)
[2025-01-03 06:21] LABS: Anion Gap 5 mEq/L (7-15); Blood Urea Nitrogen* 19 mg/dL (7-30); Calcium* 9.0 mg/dL (8.4-10.6); Carbon Dioxide* 26 mmol/L (20-32); Creatinine* 0.6 mg/dL (0.5-1.5); Est. Creatinine Clearance* 39.63; Estimated Glomerular Filt Rate 95 ml/min; Glucose* 108 mg/dL (60-115)
[2025-01-03 08:31] LABS: Cholesterol* 117 mg/dL (90-199); HDL Cholesterol* 40 mg/dL (>=50); Triglycerides* 75 mg/dL (40-149)
[2025-01-03] MEDS: SODIUM CHLORIDE 0.9 % (FLUSH) 10 ML SYRINGE 5 ML IVF (09:09)
[2025-01-03] MEDS: ASPIRIN 81 MG TABLET EC PO (09:09)
[2025-01-03 09:15] VITALS: BP 157/96; PULSE 74; RESP 16; TEMP 36.5; O2SAT 95
--- NOTE | 2025-01-03 10:38 | PC.SOCIAL ---
Discharge planning: bake room worker completed the Initial Psychosocial Assessment with the pt and her this morning in the pt's room, see below information: Initial Psychosocial Assessment: 1.? Assessment completed with: Patient, Spouse, Child, Friend, Other: Patient and her , Gene. 2.? Pt lives at address and phone number on face sheet? Own home; facility , Other: Lives in her own home with help from her . 3.?Insurance information? on face sheet is correct? Yes. 4.?Contacts? on face sheet are correct? Yes. 5.? Does pt have a Healthcare Directive, POLST or Guardian? Healthcare Directive. 6.? Who is the pt?s main source/sources of emotional/physical support? . 7.? Prior to admission did pt need assistance? Yes/No No. Assistance from is needed. 8.? Who provided and what was the assistance needed? Help with cooking, cleaning, laundry, shopping. 9.? Was Home Health being provided, by what agency? No. 10. Does pt use/have medical equipment at home already? What? No. 11. Will there be a need for additional assistance at discharge and is this available in previous setting? Most likely no. Pt states she feels very well this morning. 12. If pt needs to go to a higher level of care, are they open to this and do they have facilities they are interested in? N/A. 13. How would pt plan to transport at discharge? . 14. Is there anyone pt would like social work program coordinator to contact to discuss discharge plans? No.
[2025-01-03 11:29] VITALS: PULSE 73
[2025-01-03 12:02] VITALS: BP 162/86; PULSE 66; RESP 14; TEMP 36.7; O2SAT 97
--- NOTE | 2025-01-03 13:44 | P.DS_ITS ---
DS: Providers Provider Date Seen: 01/03/25 Date of admission: 01/02/25 16:58 Primary care physician: No Echavarria MD Admitting Clinician: Aline Mcnair MD Attending Physician on discharge: Tobin Schultz MD Date of Discharge: 01/03/25 DS: Diagnosis Discharge Diagnosis (1) Transient ischemic attack: Status: Acute Problem details: Right hand numbness and paralysis of the fingers with abrupt onset at home and mostly resolved by the time she came to the hospital and completely resolved by admission. Evaluation included CTA of the head and neck, MRI brain and echocardiogram. These were all relatively normal without evidence of stroke or large vessel stenosis. Consultation with tele neurology was done. Routine protocol for TIA stroke was initiated. Given her symptoms have resolved the diagnosis is TIA. Add aspirin 325 mg daily. Outpatient Zio patch is recommended. Patch is placed for 14 days at discharge. Neurologist's recommend additional 14 days. Hemoglobin A1c 5.3. LDL cholesterol 63. Telemetry normal. No AFib. (2) Hypertension: Status: Acute Problem details: Resume normal blood pressure medications (3) Hyperlipidemia: Status: Acute Problem details: Lipid profile is normal with an LDL of 63. Resume rosuvastatin DS: Summary Status at Discharge Cognitive/behavioral status at discharge: 74-year-old female with an episode of right hand numbness and profound weakness/paralysis of the fingers which was self-limited. Stroke evaluation in the emergency room as noted above. Symptoms have resolved. Evaluation is all normal/reassuring. Time Spent with Patient Time attestation: Total time spent providing and/or coordinating discharge services: 45 minutes Time spent: Greater than 30 minutes Exam Narrative: Exam Narrative: She is alert and appears in no distress. Speech is fluent. Eyes normal. No facial asymmetry. She moves all 4 extremities well. Const: Vital Signs, click to edit/add: Vital Signs - 24 hr 01/02/25 14:30 01/02/25 15:26 01/02/25 15:31 Temperature 96.9 F L Pulse Rate 77 74 Pulse Rate [Left P ulse Oximeter] 64 Pulse Rate [Pulse Oximeter] Respiratory Rate 18 18 18 Blood Pressure 146/131 H 151/92 H Blood Pressure [Le ft Arm] Blood Pressure [Le ft Upper Arm] 143/82 H Blood Pressure [Ri ght Arm] Pulse Oximetry 95 100 97 Oxygen Delivery Me thod Room Air 01/02/25 15:47 01/02/25 16:04 01/02/25 16:17 Temperature Pulse Rate 68 67 64 Pulse Rate [Left P ulse Oximeter] Pulse Rate [Pulse Oximeter] Respiratory Rate 18 18 18 Blood Pressure 151/77 H 146/76 H Blood Pressure [Le ft Arm] Blood Pressure [Le ft Upper Arm] Blood Pressure [Ri ght Arm] Pulse Oximetry 95 92 95 Oxygen Delivery Me thod 01/02/25 16:32 01/02/25 16:47 01/02/25 17:36 Temperature 98.2 F Pulse Rate 62 60 Pulse Rate [Left P ulse Oximeter] Pulse Rate [Pulse Oximeter] 63 Respiratory Rate 17 17 18 Blood Pressure 132/70 141/74 H Blood Pressure [Le ft Arm] 164/87 H Blood Pressure [Le ft Upper Arm] Blood Pressure [Ri ght Arm] Pulse Oximetry 99 95 99 Oxygen Delivery Me thod Room Air 01/02/25 17:36 01/02/25 18:22 01/02/25 19:20 Temperature 98.1 F Pulse Rate 64 Pulse Rate [Left P ulse Oximeter] Pulse Rate [Pulse Oximeter] 74 Respiratory Rate 16 Blood Pressure Blood Pressure [Le ft Arm] 164/86 H Blood Pressure [Le ft Upper Arm] Blood Pressure [Ri ght Arm] Pulse Oximetry 95 Oxygen Delivery Me thod Room Air Room Air 01/02/25 23:00 01/02/25 23:00 01/03/25 03:00 Temperature 98.0 F Pulse Rate 63 Pulse Rate [Left P ulse Oximeter] Pulse Rate [Pulse Oximeter] 68 65 Respiratory Rate 16 16 Blood Pressure Blood Pressure [Le ft Arm] 141/90 H 150/87 H Blood Pressure [Le ft Upper Arm] Blood Pressure [Ri ght Arm] Pulse Oximetry 98 97 Oxygen Delivery Me thod CPAP CPAP 01/03/25 09:15 01/03/25 09:15 01/03/25 11:29 Temperature 97.7 F Pulse Rate 73 Pulse Rate [Left P ulse Oximeter] Pulse Rate [Pulse Oximeter] 74 74 Respiratory Rate 16 16 Blood Pressure Blood Pressure [Le ft Arm] 157/96 H Blood Pressure [Le ft Upper Arm] Blood Pressure [Ri ght Arm] Pulse Oximetry 95 Oxygen Delivery Me thod Room Air 01/03/25 12:02 Temperature 98.1 F Pulse Rate Pulse Rate [Left P ulse Oximeter] Pulse Rate [Pulse Oximeter] 66 Respiratory Rate 14 Blood Pressure Blood Pressure [Le ft Arm] Blood Pressure [Le ft Upper Arm] Blood Pressure [Ri ght Arm] 162/86 H Pulse Oximetry 97 Oxygen Delivery Me thod Room Air DS: Data Data Completed and Pending Labs on day of discharge: Labs from last 24 hours 01/03/25 01/03/25 01/02/25 08:12 05:45 16:10 WBC 6.26 RBC 4.32 Hgb 13.4 Hct 40.2 MCV 93 MCH 31 MCHC 33 RDW Coeff of [place] Plt Count 143 Neut % (Auto) Lymph % (Auto) [place] % (Auto) Eos % (Auto) Baso % (Auto) Neut # (Auto) Lymph # (Auto) [place] # (Auto) Eos # (Auto) Baso # (Auto) Abs Immat Gran (auto) Imm/Tot Granulo (auto) INR APTT Sodium 135 Potassium 4.0 Chloride 104 Carbon Dioxide 26 Anion Gap 5 L BUN 19 Creatinine 0.6 Estimated Creat Clear 39.63 Estimated GFR 95 Glucose 108 Hemoglobin A1c 5.6 Calcium 9.0 Magnesium 2.1 Total Bilirubin AST ALT Alkaline Phosphatase Total Protein Albumin Triglycerides 75 Cholesterol 117 LDL Cholesterol, Calc 62 HDL Cholesterol 40 L Urine Color Yellow Urine Appearance Clear Urine pH 7.0 Ur Specific [place] 1.010 Urine Protein Negative Urine Glucose (UA) Negative Urine Ketones Negative Urine Blood Negative Urine Nitrite Negative Urine Bilirubin Negative Urine Urobilinogen 0.2 Ur Leukocyte Esterase 1+ A Urine RBC 0-2 Urine WBC 0-2 Ur Squamous Epith Cells None Urine Bacteria None Lab Acknowledgement Test Added 01/02/25 01/02/25 15:18 14:55 WBC 7.38 RBC 4.52 Hgb 14.0 Hct 42.1 MCV 93 MCH 31 MCHC 33 RDW Coeff of [place] 11.8 Plt Count 179 Neut % (Auto) 58.0 Lymph % (Auto) 30.2 [place] % (Auto) 8.5 Eos % (Auto) 1.9 Baso % (Auto) 0.7 Neut # (Auto) 4.28 Lymph # (Auto) 2.23 [place] # (Auto) 0.60 Eos # (Auto) 0.14 Baso # (Auto) 0.05 Abs Immat Gran (auto) 0.05 Imm/Tot Granulo (auto) 0.7 INR 0.94 APTT 28 Sodium 136 Potassium 3.9 Chloride 105 Carbon Dioxide 25 Anion Gap 6 L BUN 17 Creatinine 0.6 Estimated Creat Clear 39.63 Estimated GFR 95 Glucose 125 H Hemoglobin A1c Calcium 9.3 Magnesium Total Bilirubin 0.4 AST 34 ALT 34 Alkaline Phosphatase 77 Total Protein 6.9 Albumin 4.3 Triglycerides Cholesterol LDL Cholesterol, Calc HDL Cholesterol Urine Color Urine Appearance Urine pH Ur Specific [place] Urine Protein Urine Glucose (UA) Urine Ketones Urine Blood Urine Nitrite Urine Bilirubin Urine Urobilinogen Ur Leukocyte Esterase Urine RBC Urine WBC Ur Squamous Epith Cells Urine Bacteria Lab Acknowledgement Preliminary micro results at discharge 01/02/25 16:10 Urine Culture - Preliminary Urine,Clean Catch No growth. Imaging MR Brain: Radiologist's impression: Indication: Right hand numbness. Technique: Multiplanar, multisequence MRI of the brain was performed without intravenous contrast. Comparison: CT head 01/02/2025. Findings: The corpus callosum, pituitary gland and clivus appear intact. Craniocervical junction appears preserved. There is no restricted diffusion. No intracranial hemorrhage. The ventricles are proportionate to the cerebral sulci. The 4th ventricle appears midline. The basal cisterns appear patent. No abnormal extra-axial fluid collection identified. Mild parenchymal volume loss. Scattered T2 FLAIR hyperintense foci within the subcortical and periventricular white matter, favored to represent chronic ischemic microvascular disease. There is no intracranial mass, abnormal mass-effect or midline shift identified. Major intracranial vascular flow voids appear grossly intact. Both globes are preserved. Minimal paranasal sinus mucosal disease. Impression: 1. No acute intracranial process. 2. Mild chronic ischemic microvascular disease. CTA head and neck: Radiologist's impression: CLINICAL HISTORY: Patient with focal neurological deficits. TECHNIQUE: Standard helical CT image acquisition through the head and neck was performed after intravenous contrast bolus enhancement. 2D and 3D MIP images for post- processing were performed and interpreted on an independent workstation and 3D images were permanently archived. COMPARISON: CT same day. FINDINGS: The origins of the great vessels from the aortic arch are patent. The origin of the right vertebral artery is patent. The origin of the left vertebral artery is patent. The common carotid arteries are patent There is no stenosis at the origin of the right internal carotid artery. There is no stenosis at the origin of the left internal carotid artery. The rest of the cervical segments of the internal carotid arteries are patent up to their intracranial segments. The intracranial segments of the internal carotid arteries are patent. The vertebral arteries are codominant. The cervical segments of the vertebral arteries are patent. The intracranial segments of the vertebral arteries are patent. The middle cerebral arteries are normal without aneurysm or proximal occlusion identified. The anterior cerebral arteries are normal without aneurysm or proximal occlusion identified. The anterior communicating artery is well visualized and appears normal. The basilar artery is normal without aneurysm or occlusion. The posterior cerebral arteries are normal without aneurysm or proximal occlusion. There is normal opacification of major intracranial venous structures. The visualized lung apices are unremarkable The thyroid gland is unremarkable. The soft tissues of the neck demonstrates a 5mm lesion in the left parotid gland, likely a lymph node. There are degenerative changes in the cervical spine. IMPRESSION: Patent cervical and proximal intracranial vasculature. Discharge Plan Discharge Disposition: Home, Self-Care Date of Admission: 01/02/25 16:58 Attending Provider on Discharge: Micheal Schultz Primary Care Provider: No Echavarria Condition: Improved Anticipated Discharge Date/Time: 01/03/25 12:01 Discharge Medications: New aspirin [Ecotrin] 325 mg tablet,delayed release (DR/EC) 325 mg PO DAILY Qty: 100 2RF Continued metoprolol succinate 50 mg tablet extended release 24 hr 50 mg PO HS Patient Comments: [NO ORIGINAL SIG] amlodipine 2.5 mg tablet 2.5 mg PO DAILY omeprazole 20 mg capsule,delayed release(DR/EC) 20 mg PO DAILY PRN mirtazapine 15 mg tablet 15 mg PO HS gabapentin 100 mg capsule 200 mg PO HS rosuvastatin 10 mg tablet 10 mg PO HS Discharge Orders: Discharge Order (Routine); Ordered 01/03/25 Ordered By: Micheal Schultz Patient Education: Aspirin (By mouth), Transient Ischemic Attack (DC), Zio ( Home Heart Monitor) Activity Level: No Restrictions Discharge Diet: Heart Healthy (2 gm sodium, low fat) Follow Up Appointments: No Echavarria MD [Primary Care Provider, Family Practice] - 01/23/25 2:15 pm Referral Note: [facility] for follow up with PCP Forms[facility]
--- NOTE | 2025-01-03 14:16 | PC.NURSE ---
Discharge: Patient pleasant and cooperative. Patient hypertensive, but vitally stable, lungs clear, BS WNL, IV removed, catheter intact. Neuros are intact. Patient denies pain, and is independent in room. Patient urinating well, had 1 BM, and tolerating regular diet. Patient showered today. Zio patch education given to patient and patch applied at 1402. Patient had no further questions regarding discharge information and Zio education. Patient left the floor by foot with to home at 1411.
--- NOTE | 2025-01-03 16:05 | MR_ITS ---
Patient: BERNADINE NORRIS Facility:?[facility] Patient ID:?[id number] Site Patient ID:?[id number]. Site :?[id number] Study:?MRI-Head W/O-01/03/2025 7:20:13 AM Ordering Physician:?Francisco Jimenez Final Report: Indication: Right hand numbness. Technique: Multiplanar, multisequence MRI of the brain was performed without intravenous contrast. Comparison: CT head 01/02/2025. Findings: The corpus callosum, pituitary gland and clivus appear intact. Craniocervical junction appears preserved. There is no restricted diffusion. No intracranial hemorrhage. The ventricles are proportionate to the cerebral sulci. The 4th ventricle appears midline. The basal cisterns appear patent. No abnormal extra-axial fluid collection identified. Mild parenchymal volume loss. Scattered T2 FLAIR hyperintense foci within the subcortical and periventricular white matter, favored to represent chronic ischemic microvascular disease. There is no intracranial mass, abnormal mass-effect or midline shift identified. Major intracranial vascular flow voids appear grossly intact. Both globes are preserved. Minimal paranasal sinus mucosal disease. Impression: 1. No acute intracranial process. 2. Mild chronic ischemic microvascular disease. Dictated by Petey Pizarro MD @ 01/03/2025 7:34:19 AM Signed by:?Petey Pizarro MD @01/03/2025 7:34:19 AM (Electronic Signature)
== END 2025-01-03 14:11 | disposition home or self-care (01) ==
LOC: ED 16:16 → MEDSURG 16:59
PROVIDERS: Family Medicine; Admitting Provider Student in an Organized Health Care Education/Training Program; Emergency Provider Family Medicine; PCP Family Medicine; Visit Provider Student in an Organized Health Care Education/Training Program
DX: G45.9 Transient cerebral ischemic attack, unspecified (principal); I10 Essential (primary) hypertension; E78.5 Hyperlipidemia, unspecified
CPT/HCPCS: 36415; 70450; 70496; 70498; 70551; 80048; 80053; 80061; 81001; 83036; 83735; 85025; 85027; 85610; 85730; 87086; 93005; 93246; 93306; 97112; 97161; 97165; 97535; 99284; 99291; A9270; G0378; Q9967